=== PATIENT | female | born 1990 | race African-American/Black ===

== ENCOUNTER 2019-11-29 02:27 | Emergency (ER) | payer MEDICAID ==
[~2019-11-29] VITALS: Ht 152.4 cm; Wt 45.0 kg
[2019-11-29 02:29] VITALS: BP 94/60
== END 2019-11-29 02:52 | disposition home or self-care (01) ==
LOC: ER 02:27
DX: Z02.89 Encounter for other administrative examinations (principal); G80.9 Cerebral palsy, unspecified
CPT/HCPCS: 99281